=== PATIENT | male | born 1975 | race Caucasian/White ===

== ENCOUNTER 2016-06-21 10:57 | Emergency (ER) | payer OTHER ==
[~2016-06-21] VITALS: Ht 177.8 cm; Wt 99.8 kg
--- NOTE | 2016-06-21 10:57 | NUR ---
BIB [facility], C/O [facility] AFTER RECEIVING LOCAL ANESTHETIC FOR DENTAL WORK, PT ABLE TO SPEAK FULL SENTENCE. APPERAS IN NO APPRENT DISTRESS, RESPIRATIOON EVEN AND UNLABORED. VSS.
[2016-06-21] MEDS ORDERED: CODE15TA PO (11:06)
[2016-06-21] MEDS ORDERED: IBUP-1955 PO (11:06)
--- NOTE | 2016-06-21 11:20 | NUR ---
MD BERNARD AT BEDSIDE
[2016-06-21] MEDS ORDERED: IV NS 0.9% 1,000 ML BAG IV ONE (11:30)
[2016-06-21] MEDS ORDERED: FAMOTIDINE/PF INJ 20 MG/2 ML VIAL IV ONE ×2 (11:30→11:33)
[2016-06-21] MEDS ORDERED: methylPREDNISolone SOD SUCC 125 MG/2ML VIAL IV ONE (11:30)
[2016-06-21] MEDS ORDERED: diphenhydrAMINE HCL 50 MG/ML VIAL IV ONE (11:30)
[2016-06-21] MEDS ORDERED: methylPREDNISolone SOD SUCC 125 MG/2ML VIAL ONE (11:33)
[2016-06-21] MEDS ORDERED: IV NS 0.9% 1,000 ML ONE (11:33)
[2016-06-21] MEDS ORDERED: diphenhydrAMINE HCL 50 MG/ML VIAL ONE (11:33)
[2016-06-21] MEDS ORDERED: IV SET PRIMARY PUMP SET 1 EA INFUS.SET MC ONE (11:33)
--- NOTE | 2016-06-21 11:45 | NUR ---
IV ACCESSED TO LEFT HAND 20
--- NOTE | 2016-06-21 11:47 | NUR ---
ALL DUE MEDS GIVEN ORDERED
[2016-06-21 13:13] VITALS: BP 130/70
--- NOTE | 2016-06-21 13:14 | NUR ---
Patient discharged to home in stable condition. Written and verbal after care instructions given. Patient verbalizes understanding of instruction.IV removed. Catheter intact and site benign. Pressure and 4x4 applied to site. No bleeding noted.
== END 2016-06-21 13:14 | disposition home or self-care (01) ==
LOC: ER 10:59
DX: T50.905A Adverse effect of unspecified drugs, medicaments and biological substances, initial encounter (principal); R00.2 Palpitations; Y92.89 Other specified places as the place of occurrence of the external cause; Z88.1 Allergy status to other antibiotic agents
CPT/HCPCS: A4606; J1200; J2930; J3490; J7030; Z7610